=== PATIENT | male | born 2000 | race Caucasian/White ===

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

== ENCOUNTER 2021-05-29 17:41 | Emergency (ER) | payer SELFPAY | END 2021-05-29 19:11 | disposition home or self-care (01) | LOC: ERS 17:41 | DX: L03.115 Cellulitis of right lower limb (principal); F17.210 Nicotine dependence, cigarettes, uncomplicated | CPT/HCPCS: 99283 ==

== ENCOUNTER 2021-08-25 17:22 | Emergency (ER) | payer SELFPAY | END 2021-08-25 19:58 | disposition home or self-care (01) | LOC: ERS 17:22 | DX: L23.7 Allergic contact dermatitis due to plants, except food (principal) | CPT/HCPCS: 99282 ==

== ENCOUNTER 2024-04-17 08:52 | Emergency (ER) | payer SELFPAY ==
[2024-04-17] MEDS ORDERED: Dexamethasone 10 MG/ML VIAL ONE (09:16)
== END 2024-04-17 11:23 | disposition home or self-care (01) ==
LOC: ERS 08:52
DX: H02.842 Edema of right lower eyelid (principal); K02.9 Dental caries, unspecified; F17.210 Nicotine dependence, cigarettes, uncomplicated
CPT/HCPCS: 70487; J1100